=== PATIENT | female | born 1985 | race Hispanic/Latino ===

== ENCOUNTER 2020-09-02 15:26 | Observation (INO) | payer BC ==
[~2020-09-02] VITALS: Ht 162.6 cm; Wt 70.0 kg
[2020-09-02] MEDS ORDERED: HYDRALAZINE HCL 25 MG TABLET ONE (15:40)
[2020-09-02 16:07] LABS: BASOPHILS % (AUTO) 0.9 % (0.0-5.0); HEMATOCRIT 30.2 % (36-48); LYMPHOCYTES % (AUTO) 16.9 % (21.0-51.0); MEAN CORPUSCULAR HGB CONC 32.1 g/dL (32.0-36.0); MEAN CORPUSCULAR VOLUME 90.1 fL (79-99); MONOCYTES % (AUTO) 4.9 % (3.0-13.0); NEUTROPHILS % (AUTO) 71.2 % (40.0-77.0); PLATELET COUNT (AUTO) 212 K/uL (130-400); RED BLOOD CELL COUNT(AUTO) 3.35 MIL/uL (4.00-5.50); RED CELL DISTRIBUTION WIDTH 15.3 % (11.0-15.5); WHITE BLOOD COUNT (AUTO) 6.7 K/uL (4.8-10.8)
[2020-09-02 16:09] LABS: APPEARANCE,URINE Clear (CLEAR); BILIRUBIN,URINE Negative (NEGATIVE); COLOR,URINE Yellow (YELLOW); GLUCOSE, URINE (UA) TRACE mg/dL (NEGATIVE); KETONES,URINE Negative (NEGATIVE); LEUKOCYTE ESTERASE ,URINE Trace (NEGATIVE); NITRATE,URINE Negative (NEGATIVE); OCCULT BLOOD,URINE Negative (NEGATIVE); PH,URINE 8.5 (5.0-8.0); PROTEIN,URINE POS 2+ mg/dL (NEGATIVE); UROBILINOGEN,URINE 0.2 mg/dL (0.2-1.0)
[2020-09-02 16:13] LABS: HCG,QUAL RESULT NEGATIVE (NEGATIVE)
[2020-09-02 16:21] LABS: RBC,URINE 0-1 /HPF (0-1)
[2020-09-02 16:22] LABS: ALBUMIN 3.5 g/dL (3.5-5.0); BACTERIA,URINE Few /HPF (None Seen); BILIRUBIN,TOTAL 0.4 mg/dL (0.2-1.0); MUCUS,URINE Few LPF (None Seen); PARTIAL THROMBOPLASTIN TIME 26.7 SEC (26.3-35.5); POTASSIUM 5.8 mmol/L (3.5-5.1); PROTHROMBIN TIME 10.4 SEC (9.6-11.6); SQUAMOUS EPITHELIAL CELL,UR Moderate /HPF (0-2); TOTAL PROTEIN, SERUM 6.9 g/dL (6.0-8.3)
[2020-09-02 16:25] LABS: CREATININE 18.4 mg/dL (0.5-1.5)
[2020-09-02 16:47] LABS: B-TYPE NATRIURETIC PEPTIDE 2740 pg/mL (0-100)
[2020-09-02 20:19] LABS: THYROID STIMULATING HORMONE 2.72 uIU/mL (0.36-3.74)
[2020-09-02] MEDS ORDERED: HEPARIN SODIUM 5000UNIT/ML 1ML VIAL ONE (20:25)
[2020-09-02] MEDS: HYDRALAZINE HCL 25 MG TABLET PO SCH (21:00)
[2020-09-02] MEDS: VERAPAMIL HCL 240 MG SRTAB PO SCH (21:00)
[2020-09-02] MEDS: LOSARTAN 50 MG TABLET PO SCH (21:00)
[2020-09-02] MEDS: METOPROLOL TARTRATE 50 MG TAB PO SCH (21:00)
[2020-09-02] MEDS ORDERED: LOSARTAN 50 MG TABLET ONE (22:40)
[2020-09-03 03:40] VITALS: BP 180/111
[2020-09-03 05:25] LABS: BASOPHILS % (AUTO) 0.8 % (0.0-5.0); EOSINOPHILS % (AUTO) 6.3 % (0.0-8.0); HEMATOCRIT 32.1 % (36-48); MEAN CORPUSCULAR HEMOGLOBIN 28.3 pg (27.0-33.0); MEAN CORPUSCULAR HGB CONC 31.8 g/dL (32.0-36.0); MEAN CORPUSCULAR VOLUME 88.9 fL (79-99); NEUTROPHILS % (AUTO) 62.6 % (40.0-77.0); PLATELET COUNT (AUTO) 187 K/uL (130-400); RED BLOOD CELL COUNT(AUTO) 3.61 MIL/uL (4.00-5.50); WHITE BLOOD COUNT (AUTO) 6.2 K/uL (4.8-10.8)
[2020-09-03 05:38] LABS: MAGNESIUM 2.5 mg/dL (1.80-2.40); PHOSPHORUS 7.4 mg/dL (2.5-4.9); POTASSIUM 4.5 mmol/L (3.5-5.1)
[2020-09-03 05:50] LABS: CREATININE 11.3 mg/dL (0.5-1.5)
[2020-09-03] MEDS: HEPARIN SODIUM 5000UNIT/ML 1ML VIAL SQ SCH ×2 (06:38→17:56)
[2020-09-03] MEDS ORDERED: VERA120T13 PO (07:41)
[2020-09-03] MEDS ORDERED: LOSA50TA64 PO (07:41)
[2020-09-03] MEDS ORDERED: METO100T14 PO (07:41)
[2020-09-03 08:00] VITALS: BP 177/101
[2020-09-03] MEDS: HYDRALAZINE HCL 25 MG TABLET PO SCH ×3 (08:23→20:47)
[2020-09-03] MEDS: METOPROLOL TARTRATE 50 MG TAB PO SCH ×2 (08:23→20:47)
[2020-09-03] MEDS: VERAPAMIL HCL 240 MG SRTAB PO SCH ×2 (08:23→20:47)
[2020-09-03 11:18] VITALS: BP 170/102
[2020-09-03 16:06] VITALS: BP 171/109
[2020-09-03 19:51] VITALS: BP 171/96
[2020-09-03] MEDS: LOSARTAN 50 MG TABLET PO SCH (20:47)
[2020-09-03 23:57] VITALS: BP 173/103
[2020-09-04] VITALS (7 sets, daily range): BP systolic 116–179; BP diastolic 68–103
[2020-09-04 04:50] LABS: BASOPHILS % (AUTO) 1.1 % (0.0-5.0); HEMATOCRIT 34.2 % (36-48); LYMPHOCYTES % (AUTO) 31.9 % (21.0-51.0); MEAN CORPUSCULAR HEMOGLOBIN 28.2 pg (27.0-33.0); MEAN CORPUSCULAR HGB CONC 31.3 g/dL (32.0-36.0); MEAN CORPUSCULAR VOLUME 90.2 fL (79-99); MONOCYTES % (AUTO) 7.3 % (3.0-13.0); NEUTROPHILS % (AUTO) 52.4 % (40.0-77.0); PLATELET COUNT (AUTO) 237 K/uL (130-400); RED BLOOD CELL COUNT(AUTO) 3.79 MIL/uL (4.00-5.50); WHITE BLOOD COUNT (AUTO) 6.2 K/uL (4.8-10.8)
[2020-09-04 05:00] LABS: POTASSIUM 5.1 mmol/L (3.5-5.1)
[2020-09-04 05:02] LABS: CREATININE 13.3 mg/dL (0.5-1.5)
[2020-09-04] MEDS: HEPARIN SODIUM 5000UNIT/ML 1ML VIAL SQ SCH ×2 (05:44→19:29)
[2020-09-04 07:16] LABS: HEPATITIS A ANTIBODY IGM Negative (Negative); HEPATITIS B CORE IGM Negative (Negative); HEPATITIS Bs ANTIGEN SCREEN P Negative (Negative)
[2020-09-04] MEDS: METOPROLOL TARTRATE 50 MG TAB PO SCH ×2 (15:42→19:33)
[2020-09-04] MEDS: VERAPAMIL HCL 240 MG SRTAB PO SCH ×2 (15:42→19:33)
[2020-09-04] MEDS ORDERED: HYDRALAZINE HCL 25 MG TABLET ONE (19:30)
[2020-09-04] MEDS: HYDRALAZINE HCL 25 MG TABLET PO SCH (19:32)
[2020-09-04] MEDS: LOSARTAN 50 MG TABLET PO SCH (19:33)
[2020-09-05 04:00] VITALS: BP 155/94
[2020-09-05] MEDS: HEPARIN SODIUM 5000UNIT/ML 1ML VIAL SQ SCH (05:22)
[2020-09-05 07:00] VITALS: BP 175/98
[2020-09-05] MEDS: METOPROLOL TARTRATE 50 MG TAB PO SCH (08:01)
[2020-09-05] MEDS: VERAPAMIL HCL 240 MG SRTAB PO SCH (08:01)
[2020-09-05] MEDS: HYDRALAZINE HCL 25 MG TABLET PO SCH ×2 (08:01→14:09)
[2020-09-05 11:00] VITALS: BP 161/100
== END 2020-09-05 15:45 | disposition home or self-care (01) ==
LOC: EDH 15:26 → EDHIP 18:23 → 4DH 09-03 03:35
PROVIDERS: ADMIT Internal Medicine; ATTEND Internal Medicine
DX: I16.0 Hypertensive urgency (principal); I12.0 Hypertensive chronic kidney disease with stage 5 chronic kidney disease or end stage renal disease; N18.6 End stage renal disease; D63.1 Anemia in chronic kidney disease; E87.5 Hyperkalemia; L93.0 Discoid lupus erythematosus; R51.9 Headache, unspecified; Z99.2 Dependence on renal dialysis; Z91.15 Patient's noncompliance with renal dialysis; Z98.2 Presence of cerebrospinal fluid drainage device; Z98.51 Tubal ligation status; Z79.899 Other long term (current) drug therapy
CPT/HCPCS: 36415 ×3; 70450; 71045; 80048 ×2; 80053; 80061; 80074; 81001; 81025; 82948 ×10; 83690; 83735; 83880; 84100; 84443; 85025 ×3; 85610; 85730; 93005; 96372 ×3; 99285; G0378 ×63; J1644 ×8; 90935

== ENCOUNTER 2024-10-26 15:16 | Emergency (ER) | payer BC ==
[~2024-10-26] VITALS: Ht 165.1 cm; Wt 69.9 kg
[~2024-10-26 15:16] MED LIST: ASPI-1005 PO; LABE100T7 PO; LEVO75TA4 PO; LOSA-418 PO; MINO2.5 PO; NIFE-40 PO
[2024-10-26 16:11] LABS: RAPID GROUP A STREP negative (NEGATIVE)
[2024-10-26 16:28] LABS: SARS-CoV-2, RNA, NAAT POSITIVE SARS CoV-2 (NEGATIVE)
[2024-10-26 16:29] LABS: BASOPHILS # (AUTO) 0.05 K/uL (0.00-0.20); BASOPHILS % (AUTO) 1.5 % (0.0-5.0); EOSINOPHILS # (AUTO) 0.34 K/uL (0.00-0.70); EOSINOPHILS % (AUTO) 10.2 % (0.0-8.0); HEMATOCRIT 39.6 % (36-48); IMMATURE GRANULOCYTE ABSOLUTE 0.01 K/uL (0-1); LYMPHOCYTES # (AUTO) 0.5 K/uL (1.0-4.8); LYMPHOCYTES % (AUTO) 14.2 % (21.0-51.0); MEAN CORPUSCULAR HEMOGLOBIN 29.9 pg (27.0-33.0); MEAN CORPUSCULAR HGB CONC 31.1 g/dL (32.0-36.0); MEAN CORPUSCULAR VOLUME 96.1 fL (79-99); MONOCYTES # (AUTO) 0.4 K/uL (0.1-1.0); MONOCYTES % (AUTO) 12.7 % (3.0-13.0); NEUTROPHILS % (AUTO) 61.1 % (40.0-77.0); PLATELET COUNT (AUTO) 168 K/uL (130-400); RED BLOOD CELL COUNT(AUTO) 4.12 MIL/uL (4.00-5.50); RED CELL DISTRIBUTION WIDTH 17.4 % (11.0-15.5); WHITE BLOOD COUNT (AUTO) 3.3 K/uL (4.8-10.8)
[2024-10-26 16:44] LABS: POTASSIUM 4.6 mmol/L (3.5-5.1)
[2024-10-26 16:54] LABS: CREATININE 9.1 mg/dL (0.5-1.0)
[2024-10-26 17:07] LABS: INFLUENZA TYPE A Negative For Type A (NEGATIVE); INFLUENZA TYPE B Negative For Type B (NEGATIVE)
[2024-10-26] MEDS ORDERED: SODI30SP3 NS (17:45)
--- NOTE | 2024-10-26 17:45 | ERN ---
General Chief Complaint: Sore Throat Stated Complaint: CLOSING THROAT,MULTIPLE Time Seen by MD: 15:29 Time Seen by Midlevel: 15:29 Source: patient History of Present Illness Initial Comments 39-year-old female presents to the emergency department due to sore throat. Reports flu-like symptoms, and neck swelling but denies any chest pain, shortness of breath, vomiting or further associated symptoms. Patient states she was at dialysis but they refused the dialysis due to patient's sore throat and swelling around the neck. PMHx HTN, hypercholesterolemia, ESRD, lupus Allergies: Coded Allergies: No Known Allergies (Verified Allergy, Unknown, 09/02/20) Home Meds Active Scripts Sodium Chloride (Saline Nasal [facility]) 0.65 % [facility], 1 SPRAY NS QID for 7 Days, #60 ML 0 Refills Prov:JANE MCWILLIAMS 10/26/24 Nifedipine (Nifedipine ER) 30 Mg Tab.er.24, 90 MG PO BID, #60 TAB Prov:ANT QUEZADA IV, MD 09/29/23 Minoxidil (Loniten) 2.5 Mg Tab, 10 MG PO BID, #30 TAB Prov:ANT QUEZADA IV, MD 09/29/23 Losartan Potassium (Cozaar) 50 Mg Tablet, 50 MG PO BID, #30 TAB Prov:ANT QUEZADA IV, MD 09/29/23 Levothyroxine Sodium (Synthroid 75 Mcg Tab) 75 Mcg Tablet, 75 MCG PO DAILY@0630, #30 TAB Prov:ANT QUEZADA IV, MD 09/29/23 Labetalol HCl (Labetalol HCl) 100 Mg Tablet, 200 MG PO BID, #60 TAB Prov:ANT QUEZADA IV, MD 09/29/23 Aspirin (ASPIRIN 81MG CHEW TAB) 81 Mg Tab.chew, 81 MG PO DAILY, #30 TAB.CHEW Prov:ANT QUEZADA IV, MD 09/29/23 Past Medical History Past Medical History: High Cholesterol, Hypertension, Renal Disese, Renal Failure, Other Medical History Other: LUPUS, CKD Past Surgical History: Other Surgical History Other: TUBAL LIGATION, BILATERAL AV FISTULAS ROS Dictation Constitutional: Negative for fever,chills, and weight loss Eyes: Negative for injury, pain,redness, and discharge ENT: Positive for sore throat, congestion Negative for injury,pain or swelling Neck: Positive for swelling around the neck Cardiovascular: Negative for chest pain, palpitations, and edema Respiratory: Negative for shortness of breath, cough, and wheezing, Abdomen/GI: Negative for abdominal pain, nausea, vomiting, diarrhea, and constipation Back: Negative for injury and pain : Negative for painful urination, bleeding or discharge MS/Extremity: Negative for injury and deformity Skin: Negative for rash, and discoloration Neuro: Negative for headache, weakness, numbness, tingling, and seizure Psych: Negative for suicide ideation, homicidal ideation, and hallucinations Physical Exam Physical Exam Dictation General: awake, alert, no acute distress Head/Face: Normocephalic, atraumatic Eyes: PERRL, EOMI, normal conjunctiva ENT: oral cavity clear, TMs clear, oral mucosa moist Neck: Supple, normal range of motion, mild anterior submandibular swelling Cardiovascular: RRR, normal S1/S2 Respiratory: CTAB, no respiratory distress, no rales or wheezes Abdomen: Soft, non-tender, non-distended, no guarding or rebound. Skin: Warm, dry, normal turgor, no rash MS/Extremity: Pulses equal, no cyanosis, neurovascular intact, FROM Neuro: COAx4, GCS 15, strength 5/5, CN 2-12 intact, normal cerebellar exam, normal gait Psych: Normal behavior, mood, and affect normal Results Laboratory and Microbiology Lab and Micro Result Laboratory Tests Test 10/26/24 15:27 10/26/24 16:18 Influenza Type A Antigen Negative For Type A Influenza Type B Antigen Negative For Type B SARS-CoV-2, RNA, NAAT POSITIVE SARS CoV-2 Group A Streptococcus Rapid negative (NEGATIVE) White Blood Count 3.3 K/uL (4.8-10.8) L Red Blood Count 4.12 MIL/uL (4.00-5.50) Hemoglobin 12.3 g/dL (12.0-16.0) Hematocrit 39.6 % (36-48) Mean Corpuscular Volume 96.1 fL (79-99) Mean Corpuscular Hemoglobin 29.9 pg (27.0-33.0) Mean Corpuscular Hemoglobin Concent 31.1 g/dL (32.0-36.0) L Red Cell Distribution Width 17.4 % (11.0-15.5) H Platelet Count 168 K/uL (130-400) Mean Platelet Volume 8.4 fL (7.5-10.5) Immature Granulocyte % (Auto) 0.3 % (0-1) Neutrophils (%) (Auto) 61.1 % (40.0-77.0) Lymphocytes (%) (Auto) 14.2 % (21.0-51.0) L Monocytes (%) (Auto) 12.7 % (3.0-13.0) Eosinophils (%) (Auto) 10.2 % (0.0-8.0) H Basophils (%) (Auto) 1.5 % (0.0-5.0) Neutrophils # (Auto) 2.0 K/uL (1.8-7.7) Lymphocytes # (Auto) 0.5 K/uL (1.0-4.8) L Monocytes # (Auto) 0.4 K/uL (0.1-1.0) Eosinophils # (Auto) 0.34 K/uL (0.00-0.70) Basophils # (Auto) 0.05 K/uL (0.00-0.20) Absolute Immature Granulocyte (auto 0.01 K/uL (0-1) Nucleated Red Blood Cells 0.0 % (0.0-0.19) Sodium Level 135 mmol/L (136-145) L Potassium Level 4.6 mmol/L (3.5-5.1) Chloride Level 96 mmol/L (101-111) L Carbon Dioxide Level 27 mmol/L (21-32) Blood Urea Nitrogen 19 mg/dL (7-18) H Creatinine 9.1 mg/dL (0.5-1.0) *H Glomerular Filtration Rate Calc 5 mL/min (>90) Random Glucose 79 mg/dL (70-105) Total Calcium 9.2 mg/dL (8.5-10.1) Labs Reviewed?: Yes MDM MDM: Differential diagnosis: Viral illness, strep, SARs, electrolyte imbalance Rationale: 39-year-old female presents to the emergency department due to sore throat. Reports flu-like symptoms, and neck swelling but denies any chest pain, shortness of breath, vomiting or further associated symptoms. Patient states she was at dialysis but they refused the dialysis due to patient's sore throat and swelling around the neck. PMHx HTN, hypercholesterolemia, ESRD, lupus Per physical examination patient is in no acute distress, nonlabored breathing. Labs obtained indicate WBC of 3.3, BUN 19 creatinine 9.1 consistent with end- stage renal disease, potassium within normal limits, chloride 96, sodium 135. Influenza and strep negative. SARs COV-2 positive. Ultrasound obtained indicating multiple lymph nodes bilaterally, generalized subcutaneous edema and fat stranding. Dexamethasone and acetaminophen administered in the ED. Patient was educated on findings and diagnosis. Admission was discussed with patient. However patient and has been verbalized they were comfortable going home, patient had dialysis appointment rescheduled for tomorrow. Patient was educated to return to the emergency department if any worsening symptoms. Patient verbalized understanding. Patient stable for discharge. There are no social concerns with this patient. I independently interpreted the test that were performed, results were reviewed by me and considered findings on radiology if ordered. Medical management and examination interpretation discussions were had by me with other qualified healthcare professionals as indicated for the patient's care. ED Course Orders Procedure Category Date Status Time Covid Rna Naat LAB 10/26/24 Complete 15:28 Rapid (Group A Strep) LAB 10/26/24 Complete 15:28 Influenza Type A & B, LAB 10/26/24 Complete Rapid 15:28 Us Soft Tissue Neck US 10/26/24 Taken 15:36 Cbc With Differential LAB 10/26/24 Complete 15:36 Basic Metabolic Panel LAB 10/26/24 Complete 15:36 Dexamethasone 4mg/Ml PHA 10/26/24 Complete 1ml Vial (Dexametha 18:00 Acetaminophen 500mg PHA 10/26/24 Complete Tab (Tylenol 500mg T 18:00 Current Medications Medications (Trade) Dose Ordered Sig/[place] Route PRN Reason Start Time Stop Time Status Last Admin Dose Admin Acetaminophen (TYLenol 500MG TAB) 1,000 mg ONCE ONCE PO 10/26/24 18:00 10/26/24 18:01 DC 10/26/24 17:54 Dexamethasone Sodium Phosphate (dexaMETHasone 4MG/ML 1ML VIAL) 4 mg ONCE ONCE IM 10/26/24 18:00 10/26/24 18:01 DC 10/26/24 17:53 Vital Signs Date Time Temp Pulse Resp B/P (MAP) Pulse Ox O2 Delivery O2 Flow Rate FiO2 10/26/24 18:03 97.9 14 16 161/90 97 Room Air* 0 21 10/26/24 15:24 97.5 85 14 178/100 97 Room Air 0 DX & DISP Disposition: Discharge Departure Impression: Primary Impression: SARS-CoV-2 positive Additional Impression: Lymphadenopathy, cervical Condition: Stable Scripts Sodium Chloride (Saline Nasal [facility]) 0.65 % [facility] 1 SPRAY NS QID for 7 Days, #60 ML 0 Refills Prov: JANE MCWILLIAMS 10/26/24 Additional Instructions: Discharge home. Rest. Follow up with primary care DrAna in 24 hours. Return to the ER for any acute changes or worsening symptoms. If any medications were prescribed take as directed. Okay to continue home medications unless otherwise discussed during your visit in the emergency room today. Patient was also advised to follow-up with primary care physician in 1 to 2 days for continued monitoring. Referrals: SELF,REFERRAL (PCP) I performed the substantive portion of the visit. I have reviewed and personally made and approve the management plan that is documented in the notes by myself or the ARNAUD. I acknowledge full responsibility for the patient's management plan. JANE MCWILLIAMS Oct 26, 2024 17:45
[2024-10-26] MEDS: dexaMETHasone SOD PHOSPHATE 4 MG/ML 1ML VIAL IM ONE (17:53)
[2024-10-26] MEDS: acetaMINOPHEN 500 MG TABLET PO ONE (17:54)
[2024-10-26 18:03] VITALS: BP 161/90; PULSE 14; RESP 16; TEMP 97.9; O2SAT 97
== END 2024-10-26 18:05 | disposition home or self-care (01) ==
LOC: EDH 15:16
DX: U07.1 COVID-19 (principal); R59.1 Generalized enlarged lymph nodes; I12.9 Hypertensive chronic kidney disease with stage 1 through stage 4 chronic kidney disease, or unspecified chronic kidney disease; N18.9 Chronic kidney disease, unspecified; E78.00 Pure hypercholesterolemia, unspecified; Z79.82 Long term (current) use of aspirin; Z79.890 Hormone replacement therapy; Z79.899 Other long term (current) drug therapy; Z98.51 Tubal ligation status; Z98.890 Other specified postprocedural states
CPT/HCPCS: 99284; 87635; 80048; 85025; 87880; 87804 ×2; 36415; 76536; 96372; J1100